=== PATIENT | female | born 1985 | race American Indian/Alaskan Native ===

== ENCOUNTER 2020-01-01 03:00 | Emergency (ER) | payer BC ==
[2020-01-01] MEDS ORDERED: IBUPROFEN 600 MG TAB PO ONE (04:42)
--- NOTE | 2020-01-01 04:45 | Emergency Department Report ---
Upper Extremity - [facility] Chief Complaint: Extremity Injury, Upper Stated Complaint: FINGER PAIN Time Seen by Provider: 01/01/20 04:42 Upper Extremity: Left Index Finger Occurred When: 3 Days Mechanism: Unsure Severity: severe Symptoms: Yes Swelling, No Pain with Movement, No Deformity, No Limited Range of Movement, No Numbness, No Weakness, No Bruising/Ecchymosis, No Laceration or Abrasion Other History: 34-year-old -[place] female presents to the emergency room for left index finger with pain and swelling 3 days. Patient is unaware of any trauma to her finger. Patient reports the pain is severe. Patient reports is difficulty for her to sleep secondary to pain. Patient denies being a diabetic currently takes no medications on a daily basis and has no known drug allergies. ED Review of Systems ROS: Stated complaint: FINGER PAIN Other details as noted in HPI ED Past Medical Hx - Past Medical History Previous Medical History?: No - Surgical History Past Surgical History?: No - Social History Smoking Status: Never Smoker Substance Use Type: None - Medications Home Medications: Home Medications Medication Instructions Recorded Confirmed Last Taken Type Acetaminophen/Codeine [Tylenol 1 tab PO Q6H PRN #12 tab 01/01/20 Unknown Rx /Codeine # 3 tab] cephALEXin [Keflex] 500 mg PO Q12HR 7 Days #14 cap 01/01/20 Unknown Rx Upper Extremity Exam - Exam General: Vital signs noted. No distress. Alert and acting appropriately. ED Course Vital Signs 01/01/20 03:18 Temperature 97.7 F Pulse Rate 82 Respiratory 14 Rate Blood Pressure 137/83 O2 Sat by Pulse 98 Oximetry - I & D Left Finger Site: left index Blade Size: 11 I & D Procedure: betadine prep, sterile drapes applied, sterile dressing applied Progress: Patient tolerated well ED Medical Decision Making - Medical Decision Making 34-year-old -[place] female presents to the emergency room for left index finger with pain and swelling 3 days. Patient is unaware of any trauma to her finger. Patient reports the pain is severe. Patient reports is difficulty for her to sleep secondary to pain. Patient denies being a diabetic currently takes no medications on a daily basis and has no known drug allergies. She'll be given ibuprofen for pain management. Make an attempt to incision and drain. Patient be placed on antibiotics and to follow-up with her primary care provider. Critical care attestation.: If time is entered above; I have spent that time in minutes in the direct care of this critically ill patient, excluding procedure time. ED Disposition Clinical Impression: Paronychia Disposition: [id number] TO HOME OR SELFCARE Is pt being admited?: No Does the pt Need Aspirin: No Condition: Stable Instructions: Par[facility]ia (ED) Additional Instructions: Take pain medication as needed do not operate heavy machinery while taking Tylenol No. 3. You can also take ibuprofen [id number] 600 mg every 6-8 hours. Prescriptions: cephALEXin [Keflex] 500 mg PO Q12HR 7 Days #14 cap Acetaminophen/Codeine [Tylenol /Codeine # 3 tab] 1 tab PO Q6H PRN #12 tab PRN Reason: Pain , Severe (7-10) Referrals: PRIMARY CARE, [Primary Care Provider] - 3-5 Days
[2020-01-01 05:19] VITALS: BP 145/87
== END 2020-01-01 05:21 | disposition home or self-care (01) ==
LOC: ED 03:00
DX: L03.012 Cellulitis of left finger (principal); Z79.899 Other long term (current) drug therapy